=== PATIENT | female | born 1985 | race Caucasian/White ===

== ENCOUNTER 2017-09-05 12:01 | Emergency (ER) | payer OTHER ==
[~2017-09-05] VITALS: Ht 165.1 cm; Wt 77.7 kg
[2017-09-05] MEDS ORDERED: TOFA5TAB PO (12:17)
[2017-09-05] MEDS ORDERED: IBUPROFEN 800 MG TABLET PO ONE (12:30)
[2017-09-05 14:24] VITALS: BP 124/72
== END 2017-09-05 14:31 | disposition home or self-care (01) ==
LOC: EMS 12:02
DX: S13.4XXA Sprain of ligaments of cervical spine, initial encounter (principal); Z88.0 Allergy status to penicillin; Z88.8 Allergy status to other drugs, medicaments and biological substances; V49.49XA Driver injured in collision with other motor vehicles in traffic accident, initial encounter; Y93.89 Activity, other specified; Y92.89 Other specified places as the place of occurrence of the external cause; Y99.8 Other external cause status
CPT/HCPCS: 72125; 99284